=== PATIENT | male | born 1975 ===

== ENCOUNTER 2017-01-15 09:33 | Inpatient (IN) | payer OTHER ==
[2017-01-01 09:23] VITALS: BMI 30.2
[2017-01-15] MEDS ORDERED: Propofol 10 mg/ml Inj (20 ML) ONE ×2 (12:11→13:02)
[2017-01-15] MEDS ORDERED: Succinylcholine 200 mg/10 ml Inj IV ONE (12:11)
[2017-01-15] MEDS ORDERED: Propofol 10 mg/ml 1,000 MG/100 ML VIAL ONE ×2 (12:12→14:55)
[2017-01-15] MEDS ORDERED: Heparin 10,000 Units/ml ONE ×2 (12:23→12:39)
[2017-01-15] MEDS ORDERED: Vancomycin 1 g Inj ONE (12:23)
[2017-01-15] MEDS ORDERED: Bacitracin Ointment 30 GM TUBE ONE (12:24)
[2017-01-15] MEDS ORDERED: LIDOCAIN/EPI 1-0.001% 10ML INJ SOL IJ ONE (12:24)
[2017-01-15] MEDS ORDERED: Absorbable Gelatin Sponge Size 100 ONE ×2 (12:24→15:40)
[2017-01-15] MEDS ORDERED: Thrombin Topical 20,000 Intl Units Spray Kit TOP ONE (12:25)
[2017-01-15] MEDS ORDERED: Sodium Chloride 0.9% 10 ML IV ONE (12:39)
[2017-01-15] MEDS ORDERED: Desflurane Inhalation Anesthetic Liq (240 ml) ONE (12:41)
[2017-01-15] MEDS ORDERED: Labetalol 5 mg/ml Inj 20ML ONE (13:54)
[2017-01-15] MEDS ORDERED: Sevoflurane - Inhalation Anesthetic Liq (250 ml) ONE (15:08)
[2017-01-15] MEDS ORDERED: Bupivacaine 0.5% Inj(30mL) ONE (15:44)
[2017-01-15] MEDS ORDERED: Neostigmine Methylsulfate 3mg/3ml Syringe IV ONE (15:44)
[2017-01-15] MEDS ORDERED: Liquid Adhesive TOP ONE (16:07)
[2017-01-15] MEDS ORDERED: HYDROmorphone 1 mg/ml ISec IVP PRN (16:24)
[2017-01-15] MEDS ORDERED: HYDROmorphone 1 mg/ml PCA 25 ML IV PRN (16:26)
--- NOTE | 2017-01-15 16:55 | RAD ---
PROCEDURE: Fluoroscopy up to 1 hour HISTORY: L-4 , L-5 DISCECTOMY / FIXATION FUSION COMPARISON: TECHNIQUE: Fluoroscopy was provided in the operating room. Seconds of fluoro time were utilized. Two images were submitted FINDINGS: The study shows an intradiscal device as well as pedicle screws and rods at L4-5. IMPRESSION: As above
[2017-01-15] MEDS ORDERED: HYDROmorphone 1 mg/ml ISec ONE (17:10)
[2017-01-15] MEDS ORDERED: HYDROmorphone 0.2 mg/ml (25ml) 25 ML IV ONE (17:39)
[2017-01-15] MEDS: HYDROmorphone 0.2 mg/ml (25ml) 25 ML IV PRN ×2 (18:38→23:18)
--- NOTE | 2017-01-16 07:34 | CP.PCM.PN ---
Subjective - Date & Time of Evaluation Date of Evaluation: 01/16/17 Time of Evaluation: 07:33 - Subjective Subjective: pod 1 usual post op pain 6/10 in back only no c/o numbness in legs good st adv act Objective - Vital Signs/Intake and Output Vital Signs (last 24 hours): Temp Pulse Resp BP Pulse Ox 98.6 F 94 H 16 110/73 97 01/16/17 00:00 01/16/17 00:00 01/16/17 00:00 01/16/17 00:00 01/16/17 00:00 Intake and Output: 01/16/17 01/16/17 06:59 18:59 Intake Total 25 Output Total 500 Balance -475 - Medications Medications: Current Medications Acetaminophen (Tylenol 325mg Tab) 650 mg PO Q4H PRN PRN Reason: Fever >100.4 F Docusate Sodium (Colace) 100 mg PO BID [facility] Ferrous Sulfate (Feosol) 324 mg PO TID [facility] Hydromorphone HCl (Dilaudid 0.2 Mg/Ml Power Station Operator) 25 mls @ 0 mls/hr IV PRN PRN; Protocol PRN Reason: Pain, severe (8-10) Last Admin: 01/15/17 23:18 Dose: 0.2 mls/hr Ondansetron HCl (Zofran Inj) 4 mg IVP ONCE PRN PRN Reason: Nausea/Vomiting Pneumococcal Polyvalent Vaccine (Pneumovax 23 Vaccine) 0.5 ml IM .ONCE ONE Stop: 01/17/17 10:01
[2017-01-16] MEDS: HYDROmorphone 0.2 mg/ml (25ml) 25 ML IV PRN ×2 (07:55→21:53)
--- NOTE | 2017-01-16 22:14 | CP.PCM.PN ---
Subjective - Date & Time of Evaluation Date of Evaluation: 01/16/17 Time of Evaluation: 22:12 - Subjective Subjective: S: It was requested to insert a Best catheter as per order. Patient has not been able to void. Has no other complaints now. Pertinent medical record was reviewed. O: Last Vital Signs 3 Temp 98.4 F 01/16/17 19:10 Pulse 90 01/16/17 18:04 Resp 18 01/16/17 18:04 BP 98/60 L 01/16/17 18:04 Pulse Ox 98 01/16/17 18:04 Awake , alert, not in distress. LUNGS: Normal breathing pattern. A:Urinary retention. P:F 16 Best catheter was inserted. Objective - Vital Signs/Intake and Output Vital Signs (last 24 hours): Temp Pulse Resp BP Pulse Ox 98.4 F 90 18 98/60 L 98 01/16/17 19:10 01/16/17 18:04 01/16/17 18:04 01/16/17 18:04 01/16/17 18:04 Intake and Output: 01/16/17 01/17/17 18:59 06:59 Intake Total 1225 25 Output Total 300 Balance 925 25 - Medications Medications: Current Medications Acetaminophen (Tylenol 325mg Tab) 650 mg PO Q4H PRN PRN Reason: Fever >100.4 F Last Admin: 01/16/17 18:10 Dose: 650 mg Docusate Sodium (Colace) 100 mg PO BID [facility] Last Admin: 01/16/17 18:22 Dose: 100 mg Ferrous Sulfate (Feosol) 324 mg PO TID [facility] Last Admin: 01/16/17 18:10 Dose: 324 mg Hydromorphone HCl (Dilaudid 0.2 Mg/Ml Employment Services Director) 25 mls @ 0 mls/hr IV PRN PRN; Protocol PRN Reason: Pain, severe (8-10) Last Admin: 01/16/17 21:53 Dose: 0.2 mls/hr Ondansetron HCl (Zofran Inj) 4 mg IVP ONCE PRN PRN Reason: Nausea/Vomiting Pneumococcal Polyvalent Vaccine (Pneumovax 23 Vaccine) 0.5 ml IM .ONCE ONE Stop: 01/17/17 10:01
[2017-01-17] MEDS: HYDROmorphone 0.2 mg/ml (25ml) 25 ML IV PRN (07:04)
--- NOTE | 2017-01-17 08:28 | OP ---
PROCEDURE DATE: 01/15/2017 PREOPERATIVE DIAGNOSIS: Lumbar disk derangement, L4-5. POSTOPERATIVE DIAGNOSIS: Lumbar disk derangement, L4-5. PROCEDURE: L4-5 discectomy, interbody fusion, segmental pedicle screw fixation, posterolateral fusion with iliac autograft. SURGEON: Dr. Desmond Peña. TYPE OF ANESTHESIA: General. ESTIMATED BLOOD LOSS: 500 mL, 250 mL returned by [employer]. COMPLICATIONS: None. JUSTIFICATION: The patient is status post accident ever since when he started having severe low back pain with radiation down both lower extremities. He failed a lot of extensive conservative treatment. MRI documents significant collapse, desiccation, prolapse of the L4-5 disk with significant foraminal stenosis. All other disks in his lumbar spine were entirely normal. The patient was offered the possibility of operative intervention via discectomy, fixation, and fusion. The nature of this procedure, the rationale behind it, potential risks and complications, realistic chance of success, recovery time, discussed with him at length. All his questions were answered. He fully understood all the above and he elected to proceed as offered. DESCRIPTION OF THE PROCEDURE: The patient was taken to the operating room, he was intubated and anesthetized. He was hooked upto neurophysiological monitor and carefully turned on to a prone position on the Gregg frame on the OR table. Care was taken to protect his face, eyes, endotracheal tube, and all bony prominences. The entire low back region was scrubbed with acetone, and scrubbed, painted, and draped in the usual sterile manner. The incision was localized with lateral fluoroscopy. Incision was traced out overlying the spinous process at L3-L5. The incision was made with a 10-blade knife, carried down to the level of the fascia. The Bovie cautery and were used to set the pass out on muscles of the spinous processes and lamina at L4 and L5. This was taken out laterally to expose the L4 and L5 transverse processes, the lateral part and the lateral facets. Bleeding was controlled throughout with bipolar cautery and thrombinated powdered Gelfoam and the exposure was completed. Attention was turned to bone harvestation. A 5-gauge trocar was inserted directly through the fascia into the right superior posterior iliac crest, approximately 90 mL of bone marrow was aspirated; this was then spun down and centrifuged to obtain bone marrow mesenchymal cells to use in the fusion. The subcutaneous retractors were then placed. The decompression was done with a Leksell rongeur removing the superior spinous process at 5 and inferior of 4. The L4 lamina was then further thinned down with Leksell, this bone was saved for later use in the fusion. Laminotomy was then begun with the Kerrison which was used to remove the inferior two-thirds of the L4 lamina and perform generous medial facetectomies bilaterally. The exiting L4 nerve roots were decompressed getting out their foramina. The L5 nerve roots were identified within the canal and unroofed and these were decompressed getting below the L5 pedicle. We then exposed the discs laterally bilaterally. There were copious amounts of significant epidural veins that required coagulation. Unfortunately, the bipolars, despite multiple adjustments and changes, were not working properly and probably lost little bit more blood than we should have secondary to this problem, but bleeding was controlled with combination of the cautery and thrombinated powdered Gelfoam and Surgicel. At this point, we began the discectomy by gently retracting the left L5 nerve root medially, incising the disk, 8 through 12 mm scrapers were used to remove all further disk material and begin the decortication. This was done also with various size pituitary rongeurs. Decortication was completed with various size large curettes. Attention was then turned to the right side where again the right 5 root was gently retracted medially, disk then sized, again the same set of dangelo used. The endplates again decorticated. We then packed the disk space on the right side with our bone grafting material which included positive decompression, additional bone matrix protein, additional allograft and mesenchymal cell impregnated sponges. We then chose a 9 x 11 mm fusion cage as we felt the 12 mm scarper was fitting into the endplate. This was tapped into the interspace until it was well seated and countersunk. We then returned to the original size plate, graft and the identical carbon fiber BENGAL cage. Both visual inspection and lateral fluoroscopy confirmed excellent position of these 2 cages. At this point, we used a high-speed drill to decorticate the lateral gutters which included the transverse processes, lateral pars, and recess. We then began placement of the particular screw. Using constant lateral fluoroscopy, we identified a pedicular entrance in combination of visual inspection and lateral x-ray. Technique was used to drilling the cortical bone passing a gearshift down the barrel of the pedicle into the vertebral body using a ball tip probe to sound the path and then placing the appropriate sized screw. Additionally, the gearshift and all screws were stimulated with electrical current while magnets during EMG activity to ensure there was no evidence of breach. Using this technique, we placed 6.0 mm diameter screws at all 4 sites, I believe a combination of 40 and 45 mm length depending on side and level. No screw elucidated any EMG activity and both lateral and AP x-rays confirmed excellent position of all 4 screws. At this point, we placed the appropriate sized titanium rods in each screw head receptacles on each side. We placed locking nuts. We then tightened the L5 locking nuts bilaterally. We then used a compressor to compress the graft and then tighten the L4 screw bilaterally. We then used a torque wrench to final tightening of all 4 setscrews. We then ensured that there was no bone or foreign matter, disk material, etc., in and around the thecal sac. This was gently irrigated with antibiotic solution. A layer of thrombinated-powered Gelfoam followed by a layer of solid Gelfoam was placed in the epidural space. We then placed the appropriate size cross-connector and its 3 locking mechanisms, torque wrench tight. Lastly, we placed all remaining bone graft liberally into the lateral gutters packing it in solid to achieve the posterolateral fusion. We took final AP and lateral x-rays which confirmed excellent position of the construct. We then removed the retractors. We closed the muscle using interrupted 0 Vicryl, closed the fascia using interrupted 0 Vicryl. The wound again copiously irrigated with antibiotic solution. SubQ was closed using interrupted, inverted 2-0 Vicryl. The skin closed with a running 3-0 Monocryl stitch, Benzoin, and Steri-Strips. The dressing was applied. The patient was turned back on to the supine position on a stretcher, he was easily extubated and he was brought to recovery room in satisfactory condition where he was noted to be moving his lower extremities well. Neurophysiological monitor remained stable over the procedure. All counts were correct. There were no complications. Desmond Peña MD
[2017-01-17] MEDS ORDERED: Pneumococcal 23-Valent Vaccine IM ONE (10:00)
--- NOTE | 2017-01-17 10:24 | CP.PCM.PN ---
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 Objective - Vital Signs/Intake and Output Vital Signs (last 24 hours): Temp Pulse Resp BP Pulse Ox 98.8 F 82 20 117/66 97 01/17/17 08:21 01/17/17 08:21 01/17/17 08:21 01/17/17 08:21 01/17/17 08:21 Intake and Output: 01/17/17 01/17/17 06:59 18:59 Intake Total 625 25 Output Total 1100 Balance -475 25 - Medications Medications: Current Medications Acetaminophen (Tylenol 325mg Tab) 650 mg PO Q4H PRN PRN Reason: Fever >100.4 F Last Admin: 01/16/17 18:10 Dose: 650 mg Docusate Sodium (Colace) 100 mg PO BID [facility] Last Admin: 01/17/17 10:13 Dose: 100 mg Ferrous Sulfate (Feosol) 324 mg PO TID [facility] Last Admin: 01/17/17 10:13 Dose: 324 mg Hydromorphone HCl (Dilaudid 0.2 Mg/Ml Digital Asset Specialist) 25 mls @ 0 mls/hr IV PRN PRN; Protocol PRN Reason: Pain, severe (8-10) Last Admin: 01/17/17 07:04 Dose: 0.2 mls/hr Ondansetron HCl (Zofran Inj) 4 mg IVP ONCE PRN PRN Reason: Nausea/Vomiting
[2017-01-17] MEDS: Oxycodone/Acetaminophen 5/325 mg Tab PO PRN ×3 (13:15→19:44)
[2017-01-17] MEDS: oxyCODONE 20 mg ER Tab (oxyCONTIN) PO SCH (21:28)
[2017-01-18] MEDS: Oxycodone/Acetaminophen 5/325 mg Tab PO PRN ×3 (02:21→16:46)
[2017-01-18 08:06] VITALS: RESP 18
[2017-01-18] MEDS: oxyCODONE 20 mg ER Tab (oxyCONTIN) PO SCH (10:19)
[2017-01-18] MEDS ORDERED: Magnesium Hydroxide Susp 30 ml UD PO ONE (12:27)
--- NOTE | 2017-01-18 12:55 | CP.PCM.PN ---
Subjective - Date & Time of Evaluation Date of Evaluation: 01/18/17 Time of Evaluation: 12:53 - Subjective Subjective: SPINE _ POD #3 Pt amb 150' w RW today in therapy. Doing well and wishes to go home but no BM yet. VSS Afebrile. Incision clean and dry. Pt ambulating and transferring on own. Plan: Tent d/c today if pt has BM. Objective - Vital Signs/Intake and Output Vital Signs (last 24 hours): Temp Pulse Resp BP Pulse Ox 98.5 F 78 18 108/70 96 01/18/17 07:30 01/18/17 07:30 01/18/17 07:30 01/18/17 07:30 01/18/17 07:30 Intake and Output: 01/18/17 01/18/17 06:59 18:59 Intake Total 1200 Output Total 500 Balance 700 - Medications Medications: Current Medications Acetaminophen (Tylenol 325mg Tab) 650 mg PO Q4H PRN PRN Reason: Fever >100.4 F Last Admin: 01/16/17 18:10 Dose: 650 mg Docusate Sodium (Colace) 100 mg PO BID [facility] Last Admin: 01/18/17 10:19 Dose: 100 mg Ferrous Sulfate (Feosol) 324 mg PO TID [facility] Last Admin: 01/18/17 10:21 Dose: 324 mg Ondansetron HCl (Zofran Inj) 4 mg IVP ONCE PRN PRN Reason: Nausea/Vomiting Oxycodone HCl (Oxycontin Extended Release Tab) 20 mg PO Q12 [facility] Last Admin: 01/18/17 10:19 Dose: 20 mg Oxycodone/Acetaminophen (Percocet 5/325 Mg Tab) 1 tab PO Q4H PRN PRN Reason: Pain, moderate (4-7) Stop: 01/20/17 10:29 Last Admin: 01/18/17 10:21 Dose: 1 tab
[2017-01-18 18:49] VITALS: BP 120/80; PULSE 91; TEMP 98.8; O2SAT 98
== END 2017-01-18 19:38 | disposition home or self-care (01) | DRG 460 ==
LOC: SDS 09:33 → 5RNO 19:40
PROVIDERS: ADMIT Neurological Surgery; ATTEND Neurological Surgery
PROC: 0SG00A1 (ICD-10-PCS; 2017-01-15)
PROC: 0SG3071 Fusion of Lumbosacral Joint with Autologous Tissue Substitute, Posterior Approach, Posterior Column, Open Approach (ICD-10-PCS; 2017-01-15)
PROC: 07DR3ZZ Extraction of Iliac Bone Marrow, Percutaneous Approach (ICD-10-PCS; 2017-01-15)
PROC: 0SB20ZZ Excision of Lumbar Vertebral Disc, Open Approach (ICD-10-PCS; principal; 2017-01-15 11:30)
DX: M48.06 Spinal stenosis, lumbar region (principal); R33.9 Retention of urine, unspecified